=== PATIENT | female | born 1950 | race Native Hawaiian/Other Pacific Islander ===

== ENCOUNTER → 2019-05-25 | Outpatient (CLI) | payer MEDICARE ==
--- NOTE | 2019-05-25 13:22 | US ---
EXAMINATION TYPE: US abdomen complete DATE OF EXAM: 05/25/2019 COMPARISON: NONE CLINICAL HISTORY: R10.13 Epigastric pain. Epigastric pain, vomiting EXAM MEASUREMENTS: Liver Length: 15.1 cm Gallbladder Wall: 0.2 cm CBD: 0.5 cm Spleen: 9.3 cm Right Kidney: 11.3 x 5.4 x 6.2 cm Left Kidney: 11.0 x 6.2 x 5.2 cm Technical limitations due to large amount of overlying bowel content Pancreas: Obscured by bowel gas Liver: appears wnl Gallbladder: no evidence of stones Evidence for sonographic Higuera's sign: no CBD: wnl Spleen: appears wnl as visualized Right Kidney: no evidence of hydronephrosis Left Kidney: limited evaluation, no evidence of hydronephrosis Upper IVC: wnl Abd Aorta: calcifications noted throughout visualized portions The liver is homogenous. The intrahepatic portion of the IVC and proximal abdominal aorta are within normal limits. There is no evidence of cholelithiasis. Common bile duct is unremarkable. The visu alized portions of the pancreas are homogenous. The spleen is unremarkable. Kidneys are symmetric a nd free of hydronephrosis. No renal lesions are seen. IMPRESSION: No sonographic evidence of cholelithiasis nor acute cholecystitis. Unremarkable abdominal ultrasound other than partial obscuration of the pancreas and atherosclerosis of the abdominal aorta .
== END | disposition home or self-care (01) ==
LOC: RADUSWWP 12:11
PROVIDERS: ATTEND Pediatrics
DX: I70.0 Atherosclerosis of aorta (principal)
CPT/HCPCS: 76700

== ENCOUNTER 2020-03-02 20:03 | Emergency (ER) | payer MEDICARE ==
[2020-03-02 20:12] VITALS: RESP 18; TEMP 98
[2020-03-02] MEDS ORDERED: ACETAMINOPHEN TAB 500 MG TAB PO STA (21:19)
--- NOTE | 2020-03-02 21:30 | CT ---
EXAMINATION TYPE: CT brain cspine wo con DATE OF EXAM: 03/02/2020 COMPARISON: 08/22/2018 HISTORY: Fall with posterior head injury. CT DLP: 1369.7 mGycm Automated exposure control for dose reduction was used. Ventricles have normal size. There is no mass effect nor midline shift. There is some high attenuatio n along the cerebral falx consistent with mild acute subdural hemorrhage. This is a change compared t o old exam. The calvarium is intact. There is left posterior parietal scalp hematoma. Skull base is i ntact. Cervical vertebra have normal alignment. There is mild degenerative disc space narrowing at C5-6 C6-7 with spurring. Posterior elements are intact. Facet joints appear normal. IMPRESSION: Acute falx hemorrhage measuring up to 6 mm in thickness is a change compared to old exam. Acute left posterior parietal scalp hematoma. Mild spondylotic changes in the cervical spine. No fracture seen.
[2020-03-02] MEDS ORDERED: LABETALOL 5 MG/ML VIAL MDV IVP STA (21:39)
[2020-03-02] MEDS ORDERED: LABETALOL 200 MG in SODIUM CHLORIDE 0.9% 160 ML IV ONE (21:39)
[2020-03-02 21:54] LABS: Basophils # (A) 0.1 k/uL (0-0.2); Basophils % (A) 0 %; Eosinophils # (A) 0.3 k/uL (0-0.7); Eosinophils % (A) 2 %; HGB 12.7 gm/dL (11.4-16.0); Lymphocytes # (A) 2.5 k/uL (1.0-4.8); Lymphocytes % (A) 20 %; MCH 29.5 pg (25.0-35.0); MCHC 33.5 g/dL (31.0-37.0); MCV 88.2 fL (80.0-100.0); Mean Platelet Volume 7.5; Monocytes # (A) 0.6 k/uL (0-1.0); Monocytes % (A) 5 %; Neutrophils # (A) 9.2 k/uL (1.3-7.7); Neutrophils % (A) 72 %; Platelet Count 323 k/uL (150-450); RBC 4.31 m/uL (3.80-5.40); RDW 13.6 % (11.5-15.5); WBC 12.8 k/uL (3.8-10.6)
[2020-03-02 22:06] LABS: Albumin 3.8 g/dL (3.5-5.0); Calcium 8.9 mg/dL (8.4-10.2); Potassium 4.4 mmol/L (3.5-5.1); Total Bilirubin 0.5 mg/dL (0.2-1.3); Total Protein 6.8 g/dL (6.3-8.2)
--- NOTE | 2020-03-02 22:12 | ED ---
General Adult HPI - General Chief complaint: Fall Stated complaint: Fall Time Seen by Provider: 03/02/20 20:26 Source: patient, EMS, RN notes reviewed Mode of arrival: EMS Limitations: no limitations - History of Present Illness Initial comments: 69-year-old with a past medical history of hyperlipidemia, hypertension, diabetes mellitus presents to the emergency department for a chief complaint of fall. Patient states she was reaching up to grab something when she lost her balance fell backwards and hit her head. She did not lose consciousness. She does not take blood thinners. Patient has no other complaints at this time including shortness of breath, chest pain, abdominal pain, nausea or vomiting, or visual changes. - Related Data Home Medications Medication Instructions Recorded Confirmed Hydrochlorothiazide 25 mg PO DAILY 08/22/18 08/22/18 Insulin Glargine,Hum.rec.anlog 40 units SQ HS 08/22/18 08/22/18 [Lantus Solostar] Loratadine [Claritin] 10 mg PO DAILY 08/22/18 08/22/18 Metoprolol Tartrate [Lopressor] 100 mg PO BID 08/22/18 08/22/18 Pregabalin [Lyrica] 25 mg PO DAILY 08/22/18 08/22/18 Simvastatin [Zocor] 40 mg PO HS 08/22/18 08/22/18 buPROPion XL [Wellbutrin XL] 150 mg PO DAILY 08/22/18 08/22/18 cloNIDine HCL [Catapres] 0.2 mg PO DAILY 08/22/18 08/22/18 glipiZIDE [Glucotrol] 10 mg PO DAILY 08/22/18 08/22/18 glyBURIDE/METFORMIN HCL 2 tab PO BID 08/22/18 08/22/18 [Glucovance 5-500 mg] metFORMIN HCL 1,000 mg PO BID 08/22/18 08/22/18 traMADol HCl [Ultram] 50 mg PO BID PRN 08/22/18 08/22/18 Previous Rx's Medication Instructions Recorded Levofloxacin [Levaquin] 500 mg PO DAILY #7 tab 08/24/18 Allergies Allergy/AdvReac Type Severity Reaction Status Date / Time amlodipine [From [facility]] Allergy Unknown Verified 08/22/18 09:13 gabapentin Allergy Unknown Verified 08/22/18 09:13 Review of Systems ROS Statement: Those systems with pertinent positive or pertinent negative responses have been documented in the HPI. ROS Other: All systems not noted in ROS Statement are negative. Past Medical History Past Medical History: Diabetes Mellitus, Hyperlipidemia, Hypertension History of Any Multi-Drug Resistant Organisms: None Reported Past Surgical History: Hysterectomy Past Psychological History: No Psychological Hx Reported Smoking Status: Never smoker Past Alcohol Use History: None Reported Past Drug Use History: None Reported - Past Family History Mother History Unknown: Yes General Exam Limitations: no limitations General appearance: alert, in no apparent distress Head exam: Present: normocephalic, normal inspection. Absent: atraumatic (hematoma noted to posterior parietal scalp, no laceration) Eye exam: Present: normal appearance, PERRL, EOMI. Absent: scleral icterus, conjunctival injection, periorbital swelling ENT exam: Present: normal exam, mucous membranes moist Neck exam: Present: normal inspection, full ROM. Absent: tenderness, meningismus, lymphadenopathy Respiratory exam: Present: normal lung sounds bilaterally. Absent: respiratory distress, wheezes, rales, rhonchi, stridor Cardiovascular Exam: Present: regular rate, normal rhythm, normal heart sounds. Absent: systolic murmur, diastolic murmur, rubs, gallop, clicks GI/Abdominal exam: Present: soft, normal bowel sounds. Absent: distended, tend erness, guarding, rebound, rigid Back exam: Absent: vertebral tenderness (No thoracic or lumbar spine tenderness) Neurological exam: Present: alert, oriented X3, normal gait, other (GCS 15) Expanded Patient oriented to: Present: person, place, time Speech: Present: fluid speech Cranial nerves: EOM's Intact: Normal, Tongue Deviation: Normal, Nystagmus: Normal, Facial Sensation: Normal Cerebellar function: Finger to Nose: Normal Upper motor neuron: Pronator Drift: Normal Sensory exam: Upper Extremity Light Touch: Normal, Upper Extremity Pin Prick: Normal, Lower Extremity Light Touch: Normal, Lower Extremity Pin Prick: Normal Motor strength exam: RUE: 5, LUE: 5, RLE: 5, LLE: 5 Eye Response: (4) open spontaneously Motor Response: (6) obeys commands Verbal Response: (5) oriented Mcleod Total: 15 Course Vital Signs 03/02/20 03/02/20 03/02/20 20:07 21:36 21:57 Temperature 98 F Pulse Rate 63 68 79 Respiratory 18 18 18 Rate Blood Pressure 219/104 186/90 152/72 O2 Sat by Pulse 98 96 99 Oximetry 03/02/20 03/02/20 22:18 22:49 Temperature Pulse Rate 78 75 Respiratory 18 18 Rate Blood Pressure 127/67 119/67 O2 Sat by Pulse 99 98 Oximetry Medical Decision Making - Medical Decision Making CT brain does show acute falx hemorrhage measuring 6 cm in thickness. GCS 15. No focal neurologic deficits. On presentation patient did have hypertension and was given her home dose of oral Catapres. However once acute intercranial hemorrhage was established she was given IV labetalol. Head elevated. She was evaluated by Dr. Reynolds. Consulted emergency room at [facility]. They are contacting neurosurgery for clearance. They did call back and except patient. Patient was transferred to return for [place] for neurosurgical consultation. - Lab Data Result diagrams: 03/02/20 21:45 03/02/20 21:45 Lab Results 03/02/20 03/02/20 03/02/20 Range/Units 21:45 21:45 21:45 WBC 12.8 H (3.8-10.6) k/uL RBC 4.31 (3.80-5.40) m/uL Hgb 12.7 (11.4-16.0) gm/dL Hct 38.0 (34.0-46.0) % MCV 88.2 (80.0-100.0) fL MCH 29.5 (25.0-35.0) pg MCHC 33.5 (31.0-37.0) g/dL RDW 13.6 (11.5-15.5) % Plt Count 323 (150-450) k/uL Neutrophils % 72 % Lymphocytes % 20 % Monocytes % 5 % Eosinophils % 2 % Basophils % 0 % Neutrophils # 9.2 H (1.3-7.7) k/uL Lymphocytes # 2.5 (1.0-4.8) k/uL Monocytes # 0.6 (0-1.0) k/uL Eosinophils # 0.3 (0-0.7) k/uL Basophils # 0.1 (0-0.2) k/uL PT 10.1 (9.0-12.0) sec INR 1.0 (<1.2) APTT 22.7 (22.0-30.0) sec Sodium 137 (137-145) mmol/L Potassium 4.4 (3.5-5.1) mmol/L Chloride 99 (98-107) mmol/L Carbon Dioxide 29 (22-30) mmol/L Anion Gap 9 mmol/L BUN 23 H (7-17) mg/dL Creatinine 1.06 H (0.52-1.04) mg/dL Est GFR (CKD-EPI)AfAm 62 (>60 ml/min/1.73 sqM) Est GFR (CKD-EPI)NonAf 54 (>60 ml/min/1.73 sqM) Glucose 139 H (74-99) mg/dL Calcium 8.9 (8.4-10.2) mg/dL Total Bilirubin 0.5 (0.2-1.3) mg/dL AST 25 (14-36) U/L ALT 12 (4-34) U/L Alkaline Phosphatase 85 (38-126) U/L Total Protein 6.8 (6.3-8.2) g/dL Albumin 3.8 (3.5-5.0) g/dL Critical Care Time Critical Care Time: Yes Total Critical Care Time: 33 Critical Care Time: 33 minutes of critical care time was utilized to managing this patient. Time was spent evaluating patient, ordering laboratory tests, reviewing CT result in speaking with radiology, multiple bedside evaluations. Patient's blood pressure was managed using a labetalol drip given intracranial hemorrhage. Case was discussed with specialists from [place]. Disposition Clinical Impression: Intracranial hemorrhage Disposition: OTHER INSTITUTION NOT DEFINED Condition: Fair Is patient prescribed a controlled substance at d/c from ED?: No Referrals: Perico Jean Baptiste MD [Primary Care Provider] - 1-2 days Time of Disposition: 22:14 - Out of Hospital Transfer - Req. Specs Out of Hospital Transfer - Requested Specifics: Other Emergency Center ([facility] [place])
[2020-03-02 22:13] LABS: Partial Thromboplastin Time 22.7 sec (22.0-30.0); Prothrombin Time 10.1 sec (9.0-12.0)
[2020-03-02 22:49] VITALS: BP 119/67; PULSE 75
== END 2020-03-02 23:00 | disposition other institution (70) ==
LOC: EC 20:03
DX: S06.309A Unspecified focal traumatic brain injury with loss of consciousness of unspecified duration, initial encounter (principal); E11.9 Type 2 diabetes mellitus without complications; I10 Essential (primary) hypertension; E78.5 Hyperlipidemia, unspecified; Z79.4 Long term (current) use of insulin; Z79.899 Other long term (current) drug therapy; Z88.8 Allergy status to other drugs, medicaments and biological substances; W18.09XA Striking against other object with subsequent fall, initial encounter
CPT/HCPCS: 36415; 70450; 72125; 80053; 85025; 85610; 85730; 96374; 96376; 99291

== ENCOUNTER → 2020-06-06 | Outpatient (CLI) | payer MEDICARE ==
--- NOTE | 2020-06-19 12:14 | EM ---
This is Dr. Johnson dictating a report on the three-day event monitor. Baseline EKG showed sinus rhythm. Patient reminded in sinus rhythm throughout the recordings. Occasional APC and occasional PVCs were noted. Patient reported nonspecific symptoms. Seemed to be correlating with APC and PVC. Final impression: #1. Sinus rhythm. #2. Occasional APC #3 occasional PVC #4. Patient has nonspecific symptoms with some correlation with APCs and PVCs. [facility]
== END ==
LOC: RADECHMAIN 12:02
PROVIDERS: ATTEND Family Medicine
DX: R55 Syncope and collapse (principal); I49.3 Ventricular premature depolarization
CPT/HCPCS: 93270

== ENCOUNTER → 2020-06-28 | Outpatient (CLI) | payer MEDICARE ==
--- NOTE | 2020-06-29 13:05 | MR ---
EXAMINATION TYPE: MR brain wo/w con DATE OF EXAM: 06/28/2020 COMPARISON: CT brain 03/02/2020 HISTORY: Balance disorder TECHNIQUE: Multiplanar, multisequence images of the brain and brainstem is performed without and with IV contras t, utilizing 9 mL intravenous Gadavist . FINDINGS: Diffusion weighted images demonstrate no evidence of a recent infarct or other diffusion ab normality. There is no extra-axial fluid collection or significant white matter signal abnormality, some punctate foci in the right centrum semiovale ovale show hyperintensity and inversion recovery T2 -weighted sequences, 2 lesions are noted. The ventricular system and cisternal spaces are normal in size and appearance. The brain volume is age appropriate, there is mild cortical atrophy. Midline structures demonstrate normal morphology. The craniocervical junction appears within normal limits. Post contrast images demonstrates some diffuse dural enhancement possibly related to patient 's prior hemorrhage. The dural venous sinuses appear patent. The visualized sinuses are showing some minimal mucoperiosteal thickening in the maxillary sinus, ethmoid air cells, and the globes are intac t. IMPRESSION: No significant abnormality, mild atrophy, nonspecific white matter demyelination of quest ionable clinical significance
== END | disposition home or self-care (01) ==
LOC: RADMRIMAIN 16:48
PROVIDERS: ATTEND Physician Assistant
DX: R26.89 Other abnormalities of gait and mobility (principal)
CPT/HCPCS: 70553; A9585

== ENCOUNTER → 2021-03-03 | Outpatient (CLI) | payer MEDICARE ==
--- NOTE | 2021-03-04 09:50 | US ---
EXAMINATION TYPE: US kidneys/renal and bladder DATE OF EXAM: 03/03/2021 COMPARISON: NONE CLINICAL HISTORY: N17.9 Acute kidney injury. DION EXAM MEASUREMENTS: Right Kidney: 10.9 x 4.9 x 4.4 cm Left Kidney: 9.7 x 5.5 x 4.9 cm Right Kidney: no evidence of hydronephrosis Left Kidney: limited evaluation., No evidence of hydronephrosis Bladder: appears wnl the urinary bladder is not well-distended. Bilateral Jets seen: no No evidence of shadowing renal calculi or hydronephrosis. The left kidney is limited in evaluation du e to overlying bowel gas. IMPRESSION: 1. No hydronephrosis or shadowing renal calculi. The left kidney is not well-visualized due to overly ing bowel gas. 2. Ureteral jets are not visualized. The urinary bladder is not well-distended.
== END | disposition home or self-care (01) ==
LOC: RADUSWWP 15:46
PROVIDERS: ATTEND Internal Medicine
DX: N17.9 Acute kidney failure, unspecified (principal)
CPT/HCPCS: 76770

== ENCOUNTER 2021-05-04 14:49 | Emergency (ER) | payer MEDICARE ==
[2021-05-04 15:04] VITALS: BP 158/82; PULSE 69; RESP 16; TEMP 98.3
[2021-05-04] MEDS ORDERED: SODIUM CHLORIDE 0.9% 1,000 ML IV ONE (15:48)
--- NOTE | 2021-05-04 15:48 | ED ---
General Adult HPI - General Chief complaint: Dizziness Stated complaint: dizziness, SOB Time Seen by Provider: 05/04/21 15:16 Source: patient Mode of arrival: ambulatory Limitations: no limitations - History of Present Illness Initial comments: Billie butterfield pleasant 70-year-old female presents the ER today with complaints of lightheadedness. Patient reports her blood glucose has not been well controlled lately is usually in 300 this morning he was in the 500s after drinking some Coca-Cola. She states that because she results 12 units of insulin. She waited a couple of hours rechecked her sugar was still the 300s so she gave herself an additional 10 units of insulin. Patient states that she continues to feel lightheaded and unwell was concerned that her sugars may not be controlled in the ER for evaluation. Patient denies any recent fevers chills nausea or vomiting. She states she hasn't been eating as well as she does have decreased urine intake she may be dehydrated. She does have a history of chronic kidney disease. - Related Data Home Medications Medication Instructions Recorded Confirmed Insulin Glargine,Hum.rec.anlog 40 units SQ HS 08/22/18 08/22/18 [Lantus Solostar] Loratadine [Claritin] 10 mg PO DAILY 08/22/18 08/22/18 Metoprolol Tartrate [Lopressor] 100 mg PO BID 08/22/18 08/22/18 Pregabalin [Lyrica] 25 mg PO DAILY 08/22/18 08/22/18 Simvastatin [Zocor] 40 mg PO HS 08/22/18 08/22/18 buPROPion XL [Wellbutrin XL] 150 mg PO DAILY 08/22/18 08/22/18 cloNIDine HCL [Catapres] 0.2 mg PO DAILY 08/22/18 08/22/18 glipiZIDE [Glucotrol] 10 mg PO DAILY 08/22/18 08/22/18 glyBURIDE/METFORMIN HCL 2 tab PO BID 08/22/18 08/22/18 [Glucovance 5-500 mg] hydroCHLOROthiazide 25 mg PO DAILY 08/22/18 08/22/18 metFORMIN HCL [Glucophage] 1,000 mg PO BID 08/22/18 08/22/18 traMADol HCl [Ultram] 50 mg PO BID PRN 08/22/18 08/22/18 Previous Rx's Medication Instructions Recorded Levofloxacin [Levaquin] 500 mg PO DAILY #7 tab 08/24/18 Allergies Allergy/AdvReac Type Severity Reaction Status Date / Time amlodipine [From [facility]] Allergy Unknown Verified 05/04/21 15:00 gabapentin Allergy Unknown Verified 05/04/21 15:00 Review of Systems ROS Statement: Those systems with pertinent positive or pertinent negative responses have been documented in the HPI. ROS Other: All systems not noted in ROS Statement are negative. Past Medical History Past Medical History: Diabetes Mellitus, Hyperlipidemia, Hypertension History of Any Multi-Drug Resistant Organisms: None Reported Past Surgical History: Hysterectomy Past Psychological History: No Psychological Hx Reported Smoking Status: Never smoker Past Alcohol Use History: None Reported Past Drug Use History: None Reported - Past Family History Mother History Unknown: Yes General Exam - General Exam Comments Initial Comments: Physical Exam GENERAL: Patient is well-developed and well-nourished. Patient is nontoxic and well-hydrated and is in no distress. HENT: Normocephalic, Atraumatic. EYES: PERRL, EOMI PULMONARY: Unlabored respirations. CARDIOVASCULAR: RRR Warm and well perfused extremities ABDOMEN: Non-distended SKIN: No rashes or bruising : Deferred NEUROLOGIC: Alert and oriented Normal speech Normal gait MUSCULOSKELETAL: Moving all extremities with no apparent injury PSYCHIATRIC: No SI/HI Limitations: no limitations Course Vital Signs 05/04/21 15:01 Temperature 98.3 F Pulse Rate 69 Respiratory 16 Rate Blood Pressure 158/82 O2 Sat by Pulse 96 Oximetry EKG Findings - EKG Comments: EKG Findings:: EKG was obtained due to lightheadedness, EKG was obtained at 1517 rate is 65 rhythm is sinus there is a normal axis there are normal intervals, ID 170 QRS 90 QTc is 436 there are no acute ST elevations or depressions there is no evidence of ischemia or infarction Medical Decision Making - Medical Decision Making Was seen and evaluated history was obtained from patient, poorly controlled diabetic is been having hyperglycemia began feeling unwell today, give herself 2 additional doses of insulin during the day today totaling 22 extra units came to the ER for lightheadedness. As ago exam is unremarkable patient appears mildly dehydrated. Labs resulted in no acute findings hyperglycemia has resolved. Patient received IV fluids and reported feeling much better comfortable with plan for discharge home. - Lab Data Result diagrams: 05/04/21 15:54 05/04/21 15:54 Lab Results 05/04/21 05/04/21 05/04/21 Range/Units 15:54 15:54 15:54 WBC 8.9 (3.8-10.6) k/uL RBC 4.36 (3.80-5.40) m/uL Hgb 12.8 (11.4-16.0) gm/dL Hct 38.5 (34.0-46.0) % MCV 88.3 (80.0-100.0) fL MCH 29.4 (25.0-35.0) pg MCHC 33.3 (31.0-37.0) g/dL RDW 14.2 (11.5-15.5) % Plt Count 367 (150-450) k/uL MPV 7.6 Neutrophils % 56 % Lymphocytes % 33 % Monocytes % 7 % Eosinophils % 2 % Basophils % 1 % Neutrophils # 5.0 (1.3-7.7) k/uL Lymphocytes # 2.9 (1.0-4.8) k/uL Monocytes # 0.6 (0-1.0) k/uL Eosinophils # 0.2 (0-0.7) k/uL Basophils # 0.1 (0-0.2) k/uL VBG pH (7.31-7.41) VBG pCO2 (37-51) mmHg VBG HCO3 (24-28) mmol/L Sodium 138 (137-145) mmol/L Potassium 4.1 (3.5-5.1) mmol/L Chloride 101 (98-107) mmol/L Carbon Dioxide 29 (22-30) mmol/L Anion Gap 8 mmol/L BUN 31 H (7-17) mg/dL Creatinine 1.22 H (0.52-1.04) mg/dL Est GFR (CKD-EPI)AfAm 52 (>60 ml/min/1.73 sqM) Est GFR (CKD-EPI)NonAf 45 (>60 ml/min/1.73 sqM) Glucose 99 (74-99) mg/dL Plasma Lactic Acid Wilfrido 1.3 (0.7-2.0) mmol/L Calcium 9.5 (8.4-10.2) mg/dL Magnesium 2.0 (1.6-2.3) mg/dL Total Bilirubin 0.3 (0.2-1.3) mg/dL AST 20 (14-36) U/L ALT 11 (4-34) U/L Alkaline Phosphatase 141 H (38-126) U/L Total Protein 7.2 (6.3-8.2) g/dL Albumin 4.1 (3.5-5.0) g/dL Lipase 78 (23-300) U/L Urine Color Urine Appearance (Clear) Urine pH (5.0-8.0) Ur Specific [place] (1.001-1.035) Urine Protein (Negative) Urine Glucose (UA) (Negative) Urine Ketones (Negative) Urine Blood (Negative) Urine Nitrite (Negative) Urine Bilirubin (Negative) Urine Urobilinogen (<2.0) mg/dL Ur Leukocyte Esterase (Negative) Urine RBC (0-5) /hpf Urine WBC (0-5) /hpf Ur Squamous Epith Cells (0-4) /hpf Urine Bacteria (None) /hpf Urine Mucus (None) /hpf 05/04/21 05/04/21 Range/Units 15:54 16:41 WBC (3.8-10.6) k/uL RBC (3.80-5.40) m/uL Hgb (11.4-16.0) gm/dL Hct (34.0-46.0) % MCV (80.0-100.0) fL MCH (25.0-35.0) pg MCHC (31.0-37.0) g/dL RDW (11.5-15.5) % Plt Count (150-450) k/uL MPV Neutrophils % % Lymphocytes % % Monocytes % % Eosinophils % % Basophils % % Neutrophils # (1.3-7.7) k/uL Lymphocytes # (1.0-4.8) k/uL Monocytes # (0-1.0) k/uL Eosinophils # (0-0.7) k/uL Basophils # (0-0.2) k/uL VBG pH 7.41 (7.31-7.41) VBG pCO2 46 (37-51) mmHg VBG HCO3 28 (24-28) mmol/L Sodium (137-145) mmol/L Potassium (3.5-5.1) mmol/L Chloride (98-107) mmol/L Carbon Dioxide (22-30) mmol/L Anion Gap mmol/L BUN (7-17) mg/dL Creatinine (0.52-1.04) mg/dL Est GFR (CKD-EPI)AfAm (>60 ml/min/1.73 sqM) Est GFR (CKD-EPI)NonAf (>60 ml/min/1.73 sqM) Glucose (74-99) mg/dL Plasma Lactic Acid Wilfrido (0.7-2.0) mmol/L Calcium (8.4-10.2) mg/dL Magnesium (1.6-2.3) mg/dL Total Bilirubin (0.2-1.3) mg/dL AST (14-36) U/L ALT (4-34) U/L Alkaline Phosphatase (38-126) U/L Total Protein (6.3-8.2) g/dL Albumin (3.5-5.0) g/dL Lipase (23-300) U/L Urine Color Yellow Urine Appearance Clear (Clear) Urine pH 5.5 (5.0-8.0) Ur Specific [place] 1.016 (1.001-1.035) Urine Protein 1+ H (Negative) Urine Glucose (UA) 3+ H (Negative) Urine Ketones Negative (Negative) Urine Blood Negative (Negative) Urine Nitrite Negative (Negative) Urine Bilirubin Negative (Negative) Urine Urobilinogen 2.0 (<2.0) mg/dL Ur Leukocyte Esterase Trace H (Negative) Urine RBC 1 (0-5) /hpf Urine WBC 2 (0-5) /hpf Ur Squamous Epith Cells 3 (0-4) /hpf Urine Bacteria Rare H (None) /hpf Urine Mucus Rare H (None) /hpf Disposition Clinical Impression: Diabetes Disposition: HOME SELF-CARE Condition: Stable Instructions (If sedation given, give patient instructions): Basic Carbohydrate Counting (DC) Is patient prescribed a controlled substance at d/c from ED?: No Referrals: Perico Jean Baptiste MD [Primary Care Provider] - 1-2 days
[2021-05-04 16:00] LABS: VBG PH 7.41 (7.31-7.41)
[2021-05-04] MEDS ORDERED: SODIUM CHLORIDE 0.9% 1,000 ML IV SCH (16:00)
[2021-05-04 16:02] LABS: Basophils # (A) 0.1 k/uL (0-0.2); Basophils % (A) 1 %; Eosinophils # (A) 0.2 k/uL (0-0.7); Eosinophils % (A) 2 %; HCT 38.5 % (34.0-46.0); HGB 12.8 gm/dL (11.4-16.0); Lymphocytes # (A) 2.9 k/uL (1.0-4.8); Lymphocytes % (A) 33 %; MCH 29.4 pg (25.0-35.0); MCHC 33.3 g/dL (31.0-37.0); MCV 88.3 fL (80.0-100.0); Mean Platelet Volume 7.6; Monocytes # (A) 0.6 k/uL (0-1.0); Monocytes % (A) 7 %; Neutrophils % (A) 56 %; Platelet Count 367 k/uL (150-450); RBC 4.36 m/uL (3.80-5.40); RDW 14.2 % (11.5-15.5); WBC 8.9 k/uL (3.8-10.6)
[2021-05-04 16:14] LABS: Albumin 4.1 g/dL (3.5-5.0); Calcium 9.5 mg/dL (8.4-10.2); Potassium 4.1 mmol/L (3.5-5.1); Total Bilirubin 0.3 mg/dL (0.2-1.3); Total Protein 7.2 g/dL (6.3-8.2)
[2021-05-04 16:55] LABS: Appearance,Urine Clear (Clear); Bacteria,Urine Rare /hpf; Bilirubin,Urine Negative (Negative); Blood,Urine Negative (Negative); Color,Urine Yellow; Glucose,Urine (UA) 3+ (Negative); Ketones,Urine Negative (Negative); Leukocyte Esterase,Urine Trace (Negative); Mucus,Urine Rare /hpf; Nitrite,Urine Negative (Negative); PH, Urine 5.5 (5.0-8.0); Protein,Urine 1+ (Negative); RBC,Urine 1 /hpf (0-5); Specific Gravity,Urine 1.016 (1.001-1.035); Squamous Epithelial Cell,Urine 3 /hpf (0-4); WBC,Urine 2 /hpf (0-5)
== END 2021-05-04 17:56 | disposition home or self-care (01) ==
LOC: EC 14:49
DX: E11.22 Type 2 diabetes mellitus with diabetic chronic kidney disease (principal); I12.9 Hypertensive chronic kidney disease with stage 1 through stage 4 chronic kidney disease, or unspecified chronic kidney disease; N18.9 Chronic kidney disease, unspecified; E78.5 Hyperlipidemia, unspecified; Z88.8 Allergy status to other drugs, medicaments and biological substances; Z79.4 Long term (current) use of insulin; Z79.899 Other long term (current) drug therapy
CPT/HCPCS: 36415; 80053; 81001; 82803; 83605; 83690; 83735; 85025; 93005; 99285

== ENCOUNTER → 2022-04-29 | Outpatient (CLI) | payer MEDICARE ==
--- NOTE | 2022-04-30 08:58 | CA ---
Transthoracic Echo Report Name: Billie Marx Age: 71 Gender: F : 1950 Exam Date: 04/29/2022 13:45 Exam Location: [place] Echo Ht (in): 62 Wt (lb): 209 Ordering Physician: Perico Jean Baptiste MD Attending/Referring Phys: Eli Schmid PAC Night Time Babysitter Mayela Lobo RDCS Procedure CPT: Indications: R60.9 EDEMA Cardiac Hx: Technical Quality: Fair Contrast 1: Total Dose (mL): Contrast 2: Total Dose (mL): MEASUREMENTS (Male / Female) Normal Values 2D ECHO LV Diastolic Diameter PLAX 4.5 cm 4.2 - 5.9 / 3.9 - 5.3 cm LV Systolic Diameter PLAX 2.8 cm IVS Diastolic Thickness 1.5 cm 0.6 - 1.0 / 0.6 - 0.9 cm LVPW Diastolic Thickness 1.3 cm 0.6 - 1.0 / 0.6 - 0.9 cm LV Relative Wall Thickness 0.6 RV Internal Dim ED PLAX 2.7 cm LA Volume 67.6 cm??? 18 - 58 / 22 - 52 cm??? M-MODE Aortic Root Diameter MM 2.7 cm LA Systolic Diameter MM 4.4 cm LA Ao Ratio MM 1.6 AV Cusp Separation MM 1.7 cm DOPPLER AV Peak Velocity 137.5 cm/s AV Peak Gradient 7.6 mmHg LVOT Peak Velocity 74.8 cm/s LVOT Peak Gradient 2.2 mmHg MV Area PHT 3.4 cm??? Mitral E Point Velocity 84.3 cm/s Mitral A Point Velocity 108.0 cm/s Mitral E to A Ratio 0.8 MV Deceleration Time 220.2 ms MV E' Velocity 4.0 cm/s Mitral E to MV E' Ratio 20.9 TR Peak Velocity 233.4 cm/s TR Peak Gradient 21.8 mmHg Right Ventricular Systolic Press 26.8 mmHg FINDINGS Left Ventricle Moderately increased left ventricular wall thickness. Normal left ventricular systolic function with no obvious regional wall motion abnormalities. Left ventricular ejection fraction is estimated at 55-60 %. Right Ventricle Normal right ventricular size and function. Right ventricular systolic pressure within normal limits. Right Atrium Normal right atrial size. Left Atrium Moderate left atrial dilatation. No evidence for an atrial septal defect. Mitral Valve Structurally normal mitral valve. Mild mitral regurgitation. Aortic Valve No aortic valve stenosis or regurgitation. Tricuspid Valve Structurally normal tricuspid valve. Mild tricuspid regurgitation. Pulmonic Valve Structurally normal pulmonic valve. Trace pulmonic regurgitation. Pericardium No pericardial effusion. Aorta Normal size aortic root and proximal ascending aorta. CONCLUSIONS Moderate LVH Normal left ventricular ejection fraction 55-60% Mild mitral regurgitation Mild tricuspid regurgitation No pericardial effusion Previewed by: Dr. Santiago Pickard DO (Electronically Signed) Final Date: 30 April 2022 08:57
== END | disposition home or self-care (01) ==
LOC: RADECHMAIN 13:38
PROVIDERS: ATTEND Pediatrics
DX: I08.1 Rheumatic disorders of both mitral and tricuspid valves (principal)
CPT/HCPCS: 93306